=== PATIENT | female | born 1970 | race Caucasian/White ===

== ENCOUNTER 2020-03-08 15:54 | Emergency (ER) | payer SELFPAY ==
[2020-03-08 15:56] VITALS: BP 147/87; PULSE 102; RESP 14; TEMP 37.2; O2SAT 96; BMI 34.4
--- NOTE | 2020-03-08 16:15 | ED.VIS.GEN ---
History of Present Illness Chief Complaint: Rash Narrative: Patient presenting for evaluation secondary to a rash. Patient has a underlying history of diabetes and hypertension. Patient states that over the course the last 24 hours she has developed a rash. This started on her extremities and has been moving centrally. She reports that it itches, and hurts somewhat. Patient denies any fever. She denies any oral lesions or redness or drainage of the eyes. Patient denies any history of immunosuppression although she is quarantining with a family member who does have HIV. Nobody in the household has had any sort of similar rashes. She denies any new soaps, foods, detergents, clothes, pets, cosmetics. Patient does report that she has had the chickenpox in the past. She denies that she has had any sort of bug bites. Review of systems otherwise negative. Past Medical History - Allergies and Home Meds Allergies/Adverse Reactions: Allergies iodine Allergy (Verified 03/08/20 15:56) Rash aspirin Adverse Reaction (Verified 03/08/20 15:56) NEEDS FOLLOW-UP PAPER TAPE Allergy (Uncoded 03/08/20 15:56) Hives Primary Care Physician: Ebony Chiu MD [Primary Care Provider] - Past Medical History: - - Diabetes, hypertension Review of Systems General: Denies: Chills, Fever, Sweats Eyes: Denies: Visual changes - bilaterally, Diplopia ENT: Denies: Rhinorrhea, Sore throat Cardiovascular: Denies: Chest pain, Palpitations Respiratory: Denies: Dyspnea, Cough, Dyspnea on exertion Gastrointestinal: Denies: Abdominal pain, Nausea, Vomiting, Diarrhea, Melena, Hematochezia Genitourinary: Denies: Dysuria, Hematuria, Frequency Musculoskeletal: Denies: Back pain, Extremity Pain Skin: Reports: Rash Neurological: Denies: Headache, Weakness, Numbness Physical Exam Vital Signs/Narrative: Vital Signs Temp Pulse Resp BP Pulse Ox 03/08/20 15:56 98.9 F 102 H 14 147/87 H 96 Inital Vital Signs reviewed: Yes General: Well nourished, Well developed, No Acute Distress Head: Normocephalic, Atraumatic, - - No [place] spots or coryza noted Eyes: Perrl, EOMI ENT: Moist mucous membranes, No rhinorrhea Neck: Supple, Nontender Cardiovascular: Regular rate, Regular rhythm, No murmurs Respiratory: No distress, CTA bilaterally, Chest nontender Abdomen: Soft, Nontender, Nondistended, Normal bowel sounds Back: Nontender, Normal Inspection Extremities: Nontender, No edema Skin: Normal color, Rash, - - Diffuse macular rash that spares the palms and soles. No confluence, there is evidence of some lesions that have vesicles in different stages. No evidence of petechia. No evidence of oral lesions. Neurological: Alert, Oriented x3, Cranial nerves II-XII grossly intact, Normal Strength, Normal Sensation Psychological: Normal affect, Normal Mood Diagnostic/Tx/Re-eval - Medical Decision Making Patient presented secondary to a rash. The physical exam really seems consistent with what potentially could be a onset of a varicella-zoster infection. Patient is not immunosuppressed, but is living in quarantine with somebody who has HIV who potentially could have been the carrier for this. Patient will be placed on a course of Valtrex. [place] is from out of town she requested refills on metformin and megestrol. This will also be performed. ED Disposition - Plan for ED Patient: Disposition: Psych[facility] Hospital or Unit Diagnosis: Varicella zoster Instructions: ED Varicella Prescriptions: Megestrol [Megace] 40 mg PO DAILY #30 tab Prescription Printed Metformin HCl [Metformin HCl ER] 750 mg PO DAILY #30 tab.er.24h Prescription Printed Valacyclovir HCl [Valtrex] 1,000 mg PO TID #28 tab Prescription Printed Referrals: Ebony Chiu MD [Primary Care Provider] - 1 Week
[2020-03-08 16:45] VITALS: RESP 16
== END 2020-03-08 16:40 ==
LOC: ED 16:27
PROVIDERS: Emergency Provider Emergency Medicine; PCP Internal Medicine
DX: B02.9 Zoster without complications (principal); E11.9 Type 2 diabetes mellitus without complications
CPT/HCPCS: 99282

== ENCOUNTER 2020-03-14 23:14 | Emergency (ER) | payer SELFPAY ==
[2020-03-14 23:15] VITALS: BP 145/83; PULSE 112; RESP 18; TEMP 36.3; O2SAT 98; BMI 32.9
--- NOTE | 2020-03-15 00:25 | ED.DCSUM_ITS ---
- ER Visit Summary Date of Service: 03/15/20 Chief Complaint: Chickenpox History of Present Illness: The patient is a 50 F who presents with worsening chickenpox for the past week. Patient states she was seen here last Monday and was diagnosed with chickenpox. Patient states she has been on Valtrex for this. Patient states the rash is getting worse. Patient states the rash is itching. Patient denies any fevers or chills. Patient denies any cough or shortness of breath. Patient denies any nausea or vomiting. Patient states she has been taking Benadryl orally and using cortisone cream but this is not helping much with the itching. Physical Examination: Vital signs are stable. Patient is afebrile. Patient is in no acute distress. Skin is warm and dry. There is a diffuse patchy maculopapular rash over the chest, abdomen, neck, upper, and lower extremities. There is some mild crusting. There is no discharge or drainage. Heart was regular rate and rhythm. Lungs are clear and equal bilaterally. Abdomen is soft. Bowel sounds are normal. There is no tenderness. Cranial nerves II through XII are intact. There are no focal motor or sensory deficits. Emergency Department Course and Treatment: Patient was instructed to continue her Valtrex until it is gone. Patient states she has another week of this. Patient was given a prescription for Atarax. Patient states she does not have a primary care physician. Patient was given a referral for a primary care physician to follow-up with in 3 to 5 days. Patient understood and was agreeable with the plan. All questions were answered. Disposition: Discharge home Impression: Chickenpox This note was generated with [employer] dictation software. It may contain incorrect words, spelling, and punctuation that were not noted in review of the chart prior to signing ED Disposition - Plan for ED Patient: Disposition: Home or Assisted Living Diagnosis: Chickenpox Instructions: ED Varicella Prescriptions: hydrOXYzine tablet [Atarax tablet] 10 mg PO TID PRN PRN #20 tab PRN Reason: Itching Prescription Printed Referrals: Ebony Chiu MD [Primary Care Provider] - 3-5 Days
== END 2020-03-15 01:17 | disposition home or self-care (01) ==
LOC: ED 03-15 00:56
PROVIDERS: Emergency Provider Emergency Medicine; PCP Internal Medicine
DX: B01.9 Varicella without complication (principal)
CPT/HCPCS: 99282

== ENCOUNTER → 2020-03-31 16:35 | Outpatient (CLI) | payer SELFPAY ==
[2020-03-31 14:22] VITALS: BMI 32.9
[2020-03-31 17:05] LABS: Absolute Lymphocyte Count 3.07 X10^3/uL (0.83-4.51); Absolute Neutrophil Count 5.2 X10^3/uL (2.0-7.7); Basophil# 0.04 X10^3/uL; Basophil% 0.4 % (0-1); Eosinophil# 0.19 X10^3/uL; Eosinophils% 2.1 % (0-5); Hemoglobin 15.1 g/dL (12.0-15.0); Lymphocyte # 3.07 X10^3/ul (4.0); Lymphocyte % 33.8 % (19-41); Mean Corp Hgb Conc 32.8 g/dL (32-36); Mean Corpuscular Hgb 29.4 pg (27.0-32.0); Mean Corpuscular Volume 89.7 fL (81-99); Mean Platelet Vol. 10.5 fl (6.2-12.0); Monocyte# 0.54 X10^3/uL; Monocyte% 5.9 % (0-10); NRBC Flagged by Analyzer 0 % (0-5); Neutrophil # 5.21 X10^3/uL (2.7-7.7); Neutrophil % 57.4 % (47-70); Platelet Count 306 K/mm3 (150-450); RBC Distribution Width CV 13.1 % (11.6-14.6); Red Blood Count 5.13 M/mm3 (4.2-5.4); White Blood Count 9.1 K/mm3 (4.4-11.0)
[2020-03-31 17:20] LABS: Hemoglobin A1c 8.3 % (3.8-5.6)
[2020-03-31 17:22] LABS: Microalbumin:Creatinine Ratio 10.9 mg/g CRE (<30 mg/g CRE)
[2020-03-31 17:31] LABS: ALB/GLOB Ratio 0.8 RATIO (0.9-2.4); AST(SGOT) 23 U/L (15-37); Alanine Aminotransfer ALT/SGPT 30 U/L (13-56); Albumin, Serum 3.7 g/dL (3.2-5.0); Alkaline Phosphatase 64 U/L (45-117); Anion Gap 11 (5-15); BUN 9 mg/dL (7-18); BUN/Creat Ratio 10.1 RATIO (10-20); Calcium,Total 9.5 mg/dL (8.5-10.1); Chloride 108 mmol/L (98-107); Cholesterol 208 mg/dL (200); EST Glomerular Filtration Rate 71 mL/min (>60); Est Glom Filt Rate - Afr Amer 85 mL/min (>60); Globulin 4.7 g/dL (2.2-4.2); Glucose 226 mg/dL (74-106); High Density Lipoprotein 40 mg/dL; Potassium 3.6 mmol/L (3.5-5.1); Protein, Total 8.4 g/dL (6.4-8.2); Sodium Level 142 mmol/L (136-145); Triglycerides 174 mg/dL; Very Low Density Lipoprotein 35 mg/dL (5-40)
== END ==
PROVIDERS: PCP Internal Medicine; Referring Provider Internal Medicine; Visit Provider Internal Medicine
DX: J45.909 Unspecified asthma, uncomplicated (principal); I10 Essential (primary) hypertension; E11.9 Type 2 diabetes mellitus without complications
CPT/HCPCS: 80053; 80061; 82043; 82570; 83036; 85025

== ENCOUNTER 2020-04-04 16:34 | Emergency (ER) | payer SELFPAY ==
[2020-03-31 14:22] VITALS: BMI 32.9
[2020-04-04 16:35] VITALS: BP 156/100; PULSE 94; RESP 18; TEMP 36.2; O2SAT 97; BMI 33.9
--- NOTE | 2020-04-04 16:57 | ED.VIS.UPPEX ---
History of Present Illness Chief Complaint: Laceration Informant: Patient Occurred: Today Mechanism/Context: Injury Context: Sudden Onset Timing: Continuous Quality of Pain: - - sore Current Severity: Mild Maximum Severity: Moderate Worsened by: palpation Relieved by: leaving alone Associated Symptoms: Negative for: Parasthesia, Weakness, Loss of Funtion Narrative: [id number] female accidentally cut her right thumb on a cheese grater while cleaning it in the kitchen. Tetanus Immunization: <5 years - Past Medical History (1) Asthma Status: Chronic (2) Carpal tunnel syndrome on both sides Status: Chronic (3) Chronic back pain Status: Chronic (4) GERD (gastroesophageal reflux disease) Status: Chronic (5) Hypertension Status: Chronic (6) Iron deficiency anemia Status: Chronic (7) Migraine Status: Chronic (8) Mild aortic regurgitation Status: Chronic (9) NAFLD (nonalcoholic fatty liver disease) Status: Chronic (10) Recurrent depression Status: Chronic (11) Type 2 diabetes mellitus Status: Chronic Past Medical History - Allergies and Home Meds Allergies/Adverse Reactions: Allergies iodine Allergy (Verified 04/04/20 16:37) Rash aspirin Adverse Reaction (Verified 04/04/20 16:37) NEEDS FOLLOW-UP PAPER TAPE Allergy (Uncoded 04/04/20 16:37) Hives Primary Care Physician: Renee Sheehan MD [Primary Care Provider] - Lives: With Family Smoking Status: Never smoker Review of Systems Musculoskeletal: Reports: Extremity Pain Skin: Reports: Wounds Neurological: Denies: Weakness, Parasthesia Physical Exam Vital Signs/Narrative: Vital Signs Temp Pulse Resp BP Pulse Ox 04/04/20 16:35 97.2 F L 94 18 156/100 H 97 General: Well nourished, Well developed, - - nad Extremeties: Mild tenderness to laceration at the right distal aspect of the thumb, full range of motion including extensor, flexion, opposition. Nail is intact and without injury, the laceration is curvilinear at the radial/distal aspect, approaches the side of the nail it is partial-thickness without signs of contamination. No tissue loss. Skin: Trauma - lac R thumb pad Neurological: Alert, Oriented x3, Cranial nerves II-XII grossly intact, Normal Strength, Normal Sensation, Normal Gait Psychological: Normal affect, Normal Mood Diagnostic/Tx/Re-eval - Medical Decision Making Repaired with Dermabond after we discussed the risk and benefits of doing a, I think she has a low risk for infection since this is pretty superficial, she was comfortable with that plan. We both agreed that it did not need to be sutured. Discussed reasons to return. Procedures - Lacerations Right thumb Length: 1 cm Depth: Skin Shape: Linear - Curvilinear Prep: Sterile Conditions, Chlorhexadine Laceration repair: Dermabond Comment: Tolerated well without complication ED Disposition - Plan for ED Patient: Disposition: Home or Assisted Living Diagnosis: Laceration of right thumb without foreign body without damage to nail Instructions: ED Laceration Ext Skin Glue Referrals: Renee Sheehan MD [Primary Care Provider] - As Needed
== END 2020-04-04 17:17 | disposition home or self-care (01) ==
LOC: ED 17:12
PROVIDERS: Emergency Provider Emergency Medicine; PCP Internal Medicine
DX: S61.011A Laceration without foreign body of right thumb without damage to nail, initial encounter (principal); W26.9XXA Contact with unspecified sharp object(s), initial encounter
CPT/HCPCS: 99282